=== PATIENT | male | born 1960 | race Caucasian/White ===

== ENCOUNTER 2017-03-15 05:27 | Inpatient (IN) | payer MEDICARE, BC ==
[~2017-03-15] VITALS: Ht 172.7 cm; Wt 148.4 kg
--- NOTE | ~2017-03-15 | CR236 ---
[facility] A Service of [facility] & [facility] RADIOLOGY TEXT RESULTS PATIENT: YUE VARNER LOCATION: [facility] 302- : [birth year] UNIT #: [id number] AGE: [address]: WHITNEY LINDSAY V SEX: M ORDER DR: [id number] [facility] [address] [place], [place] [address] [id number] I MR#: [id number] Acc #: [id number] NAME: YUE VARNER : 1960 SEX: M STUDY DATE/TIME: 03/16/2017 10:56 UNIT: A U ROOM: [facility] STUDY DESCRIPTION: CR Small Bowel Sbft W Films Attending Physician: Whitney Lindsay M.D. Ordering Physician: Juan Alberto Joe M.D. MEDICAL IMAGING REPORT This report is preliminary unless electronic signature is present EXAM Small bowel follow-through HISTORY Small bowel obstruction. FINDINGS Water-soluble contrast was utilized. Within about 2 hours, contrast was visualized within the colon. No dilated loops of small bowel are seen. Bowel opacification is marginal given water-soluble contrast material. The terminal ileum could not be assessed. Total of 0.95 minutes of fluoroscopy. 6 overhead images and 2 fluoroscopic spot images. IMPRESSION Normal small bowel follow-through. No evidence of bowel obstruction. Limited due to water-soluble contrast utilization. Dictated by... Elder Bergman M.D. THIS IS AN ELECTRONICALLY VERIFIED REPORT Elder Bergman M.D. at 03/17/2017 2:54 PM TEV/pcl TD: 03/16/2017 23:20 JOB #: [id number] MEDICAL IMAGING REPORT Page 1 of 1 COPY
--- NOTE | ~2017-03-15 | DS ---
Unit #: [id number] #: [id number] Patient: YUE VARNER [id number] [address] [place], [place] [address] [id number] I MR#: [id number] NAME: YUE VARNER ROOM: 302 Age: 56 Sex: M Admission Date: 03/15/2017 : 1960 Discharge Date: 03/17/2017 Attending Physician: Matt Dominguez M.D. Primary Care Physician: Andie Primary Care Physician DISCHARGE SUMMARY PERTINENT HISTORY/HOSPITAL COURSE The patient is a 56-year-old man with a history significant for hypertension, diabetes mellitus, hyperlipidemia, hypothyroidism, recent cardiac ablation on February 25 with maze procedure for atrial fibrillation, continued on amiodarone and on Coumadin for anticoagulation, who presented to the hospital with symptoms of abdominal pain. CAT scan of the abdomen demonstrated findings consistent with small bowel obstruction with transition zone in the right lower quadrant. CAT scan also demonstrated bilateral adrenal nodules, left greater than right. These nodules are larger than seen on 01/15/2006. The patient is to followup as an outpatient for these nodules either with the [facility] or urology, Dr. Hinds. During his admission, the patient's small bowel obstruction was managed by placing the patient NPO, and then NG-tube was placed. This NG-tube was maintained on low intermittent suction. After 24 hours, the patient started having bowel movements. Subsequent small bowel follow through was ordered which demonstrated normal small bowel follow through and no evidence of bowel obstruction. The patient will be discharged today. At discharge, the patient is tolerating oral feeds without vomiting. The patient is comfortable. His vitals are stable. DISCHARGE DIAGNOSES 1. Small bowel obstruction with resolution. 2. Atrial fibrillation, status post maze procedure. 3. Hypertension. 4. Diabetes mellitus. 5. Hypothyroidism. DISCHARGE MEDICATIONS 1. Amiodarone 400 mg twice daily for two days, then 200 mg twice daily for one week, then 200 mg once daily. 2. Coumadin 7.5 mg p.o. on Mondays and Fridays. 3. Coumadin 3.75 mg p.o. on Sundays, Tuesdays, Wednesdays, and Saturdays. 4. His metformin is to be held for ten days due to receiving contrast. 5. Coreg 12.5 mg p.o. twice daily. 6. Furosemide 80 mg p.o. once daily. 7. Lipitor 40 mg p.o. once daily. 8. Doxazosin 8 mg p.o. at bedtime. 9. Cozaar 50 mg p.o. once daily. 10. NovoLog FlexPen 20 units subcu a.c. meals. 11. Lantus 34 units subcu at bedtime. 12. Fish oil, one cap p.o. twice daily. 13. Multivitamin, one tab p.o. b.i.d. B complex. 14. Aspirin 81 mg p.o. daily. Unit #: [id number] #: [id number] Patient: YUE VARNER 15. Tramadol 50 mg p.o. daily as needed for pain. 16. Protonix 40 mg p.o. daily. DISCHARGE INSTRUCTIONS Follow up with Dr. Hinds as an outpatient for adrenal masses or follow up with the [facility] as an outpatient for adrenal masses. Follow up with cardiology as an outpatient. Follow up with primary care as an outpatient. Dictated by... Jordan Hurd/janette TD: 03/19/2017 09:11 JOB #: [id number] DISCHARGE SUMMARY Page 1 of 1 X X DISCHARGE SUMMARY
--- NOTE | ~2017-03-15 | CR2 ---
[facility] A Service of [facility] RADIOLOGY TEXT RESULTS PATIENT: YUE VARNER LOCATION: [facility] : 62 UNIT #: [id number] AGE: [address]: WHITNEY LINDSAY V SEX: M ORDER DR: [id number] [facility] [address] [place], [place] [address] [id number] I MR#: [id number] Acc #: [id number] NAME: YUE VARNER : 1960 SEX: M STUDY DATE/TIME: 03/16/2017 6:03 UNIT: C3A PCU ROOM: [facility] STUDY DESCRIPTION: CR Abdomen Acute Series Attending Physician: Whitney Lindsay M.D. Ordering Physician: Brody Barney M.D. Primary Care Physician: No Primary Care Physician MEDICAL IMAGING REPORT This report is preliminary unless electronic signature is present EXAM Acute abdomen series, 03/16/2017. HISTORY Small bowel obstruction symptoms with cramping and shortness of air for one day. COMPARISON CT abdomen and pelvis from yesterday. FINDINGS A PA view of the chest and a flat and upright view of the abdomen were obtained. The heart size is mildly enlarged. The vascularity is normal. There is a nasogastric tube present with its tip in the stomach. The bowel gas pattern is normal. The bones are unremarkable. IMPRESSION Although yesterday's CT scan showed marked distension of some of the small bowel, today's plain film series does not show any small bowel distension, probably because the bowel is filled with fluid. There is no free air. The heart is mildly enlarged. Dictated by... Edgar Mooney M.D. THIS IS AN ELECTRONICALLY VERIFIED REPORT Edgar Mooney M.D. at 03/16/2017 3:25 PM FEL/tmw [facility] A Service of [facility] RADIOLOGY TEXT RESULTS PATIENT: YUE VARNER LOCATION: [facility] : 62 UNIT #: [id number] AGE: [address]: WHITNEY LINDSAY V SEX: M ORDER DR: TD: 03/16/2017 13:36 JOB #: [id number] MEDICAL IMAGING REPORT Page 1 of 1 COPY
--- NOTE | ~2017-03-15 | BMI ---
[facility] Nutrition Therapy DATE: 03/16/17 Patient: YUE VARNER Physician: HAMIDA Address: [address] [place] [address] Room/Bed: [address] [place] [address], Zip: [place] [address] Admit Date: 03/15/17 Date of : 62 Height: 5 8 Weight: 322 146.4 HIGH BMI NOTE: DX: 56 y/o male admitted with abdominal pain, no BM, found to have SBO on CT scan ANTHROPOMETRICS: Ht: 68", Wt: 146.4 kg, BMI: 49 (stage III obese) DIET: NPO except ice chips INTERVENTION: Restricted diet, meds/fluids per MD RECOMMENDATIONS: Once medically feasible advance oral diet as tolerated to consistent carb/healthy heart due to PMH, to promote a gradual weight loss towards a healthy BMI range. If unable to advance to oral diet within [address] for nutrition support recommendations. Respectfully, Zuly Rojo, STACY, LD [employer] [facility] [employer] cc: client file
--- NOTE | ~2017-03-15 | EKG ---
PATIENT: YUE VARNER UNIT #: [id number] Ventricular Rate: 86 BPM Atrial Rate: 86 BPM P-R Interval: 200 ms QRS Duration: 140 ms Q-T Interval: 430 ms QTC Calculation(Bezet): 514 ms P Oliver: 28 degrees Calculated R Oliver: 4 degrees Calculated T Oliver: 34 degrees Diagnosis Line: Normal sinus rhythm Diagnosis Line: Right bundle branch block Diagnosis Line: Abnormal ECG Diagnosis Line: No previous ECGs available Diagnosis Line: Confirmed by GREGORY MCGEE MD ([id number]) on 03/16/2017 Diagnosis Line: 11:43:21 PM INTERPRETING MD: ARELY CONNELL
--- NOTE | ~2017-03-15 | CO ---
Unit #: [id number] #: [id number] Patient: YUE VARNER [id number] [address] [address] [id number] I MR#: [id number] NAME: YUE VARNER ROOM: 302 Age: 56 Sex: M Admission Date: 03/15/2017 : 1960 Attending Physician: Matt Dominguez M.D. Primary Care Physician: Primary Care Physician No CONSULTATION REPORT HISTORY OF PRESENT ILLNESS Mr. Varner is a 56-year-old white male, with history of hypertension, diabetes, hyperlipidemia, hypothyroidism, obstructive sleep apnea, cardiac ablation, and maze procedure for atrial fibrillation, presented with abdominal pain. He felt to have partial small bowel obstruction. He was admitted and placed on NG tube. We were consulted, because of his history of AURA. He has a history of AURA, maintained on CPAP. He is followed through the [facility]. He believes he is on a CPAP of 12. He has had no recent fever, chills, cough, or purulent sputum. PAST MEDICAL HISTORY Hypertension, diabetes, hyperlipidemia, hypothyroidism, atrial fibrillation status post cardiac ablation and maze procedure. PAST SURGICAL HISTORY Cardiac ablation, maze procedure, bilateral carpal tunnel release, left knee replacement, history of intestinal obstruction and perforation as a child. HOME MEDICATIONS Coreg, Lasix, Cozaar, aspirin, metformin, Glucotrol, NovoLog, Lantus, ferrous sulfate, Lipitor, Norvasc, amiodarone, Coumadin, Synthroid, Cardura, tramadol, Protonix, vitamin C, fish oil, Nizoral 2% cream. FAMILY HISTORY Negative for lung disease. SOCIAL HISTORY No tobacco, alcohol, or illicit drugs. REVIEW OF SYSTEMS Positive for abdominal pain. Denies shortness of breath or purulent sputum. All 10-point systems otherwise negative. PHYSICAL EXAMINATION GENERAL: White male. VITAL SIGNS: Blood pressure is 126/62, pulse 79, respiratory rate 18, and temperature 99.5. HEENT: Normocephalic and atraumatic. Pupils are equal, round, and reactive. Sclerae nonicteric. Nasal passages patent. NG tube in nose. Mallampati IV. Mucous membranes dry. NECK: Supple. Trachea midline. No cervical or supraclavicular lymphadenopathy. No bruits. LUNGS: Fairly clear bilaterally. Unit #: [id number] #: [id number] Patient: YUE VARNER CARDIAC: Irregular rate and rhythm. ABDOMEN: Moderately tender. Positive bowel sounds. No hepatosplenomegaly. No definite guarding. EXTREMITIES: Without clubbing, cyanosis, or edema. NEUROLOGIC: Awake, alert, and oriented x3. Motor function symmetric. Cranial nerves grossly intact. SKIN: Warm and dry. Psychiatric: Affect calm. DIAGNOSTIC STUDIES LABORATORY RESULTS: Reviewed. IMAGING STUDIES: No chest x-ray has been done. IMPRESSION 1. Small bowel obstruction/partial. 2. Atrial fibrillation, status post ablation and maze procedure. 3. Obstructive sleep apnea, maintained on CPAP. 4. Diabetes. 5. Hypertension. 6. Hyperlipidemia. 7. Morbid obesity. PLAN The patient is unable to wear CPAP due to NG tube and current medical problems. Would recommend elevation head of bed, supplemental oxygen, continuous pulse ox. He is to wear CPAP when NG tube was out. Should avoid sedatives and narcotics without CPAP. We will check chest x-ray in a.m. Make further recommendations pending this. But also place on DVT prophylaxis. Dictated by... Phani Hurt M.D. JOSE/paulette TD: 03/18/2017 09:25 JOB #: [id number] CONSULTATION REPORT Page 1 of 1 X Phani Hurt MD X CONSULTATION REPORT
--- NOTE | ~2017-03-15 | CT2 ---
[facility] A Service of [facility] RADIOLOGY TEXT RESULTS PATIENT: YUE VARNER LOCATION: C3A 302-01 : 62 UNIT #: [id number] AGE: [address]: ELIZABETH LINDSAYUJ V SEX: M ORDER DR: [id number] [facility] [address] [place], [place] [address] [id number] MR#: [id number] Acc #: [id number] NAME: YUE VARNER : 1960 SEX: M STUDY DATE/TIME: 03/15/2017 8:33 UNIT: QUINN ROOM: STUDY DESCRIPTION: CT Abd and Pelv W Cont Attending Physician: Carlos Garcia M.D. Ordering Physician: Carlos Garcia M.D. Primary Care Physician: Primary Care Physician No MEDICAL IMAGING REPORT This report is preliminary unless electronic signature is present EXAM CT abdomen and pelvis with contrast 03/15/2017 HISTORY Lower abdominal pain with bloating and gas sensation. Patient states right lower quadrant pain since 03/14/2017. Patient states status post cardiac ablation procedure approximately 2 weeks ago. COMPARISON No prior dedicated abdominal imaging at this institution for comparison. PROCEDURE 5 mm axial images from the lung bases through the lesser trochanters after intravenous contrast administration. Enteric contrast was not administered. Sagittal and coronal reformatted images were obtained. This CT examination was performed with one or more of the following radiation dose reduction techniques: automatic exposure control, adjustment of mA and/or kV according to patient size, and iterative reconstruction. FINDINGS ABDOMEN: Limited evaluation of bowel due to lack of enteric contrast. There are multiple abnormally dilated small bowel loops with air-fluid levels. Transition zone is thought to be within the right [id number] abdomen (series 3 image 77). Distal to this, the small bowel loops are decompressed. Findings are worrisome for small bowel obstruction. The colon does not appear thickened or inflamed, there is mild colonic stool burden. There is partial fecalization of the right lower quadrant small bowel upstream to the aforementioned transition zone. No free air, pneumatosis is identified. [facility] A Service of [facility] RADIOLOGY TEXT RESULTS PATIENT: YUE VARNER LOCATION: C3[facility] 302-01 : 62 UNIT #: [id number] AGE: [address]: WHITNEY LINDSAY V SEX: M ORDER DR: There is mild to moderate cardiac enlargement. Ill-defined fat stranding is demonstrated within the midline lower abdominal wall and within the extraperitoneal fat planes of the upper abdomen near the level of the xiphoid process, thought to be likely related to the patient's reported history of recent surgical ablation procedure. There is mild dependent atelectasis in the lung bases. Liver, gallbladder, spleen, pancreas are normal. Left kidney is normal. 3 cm cyst is demonstrated medially within the right lower renal pole (Hounsfield units 7.9). Bilateral adrenal nodules are present, right greater than left. Left adrenal nodule measures 2.5 x 3.5 cm (Hounsfield units 33.8), slightly larger than on 01/15/2006 where it measured 2.7 x 2.5 cm. The right adrenal nodule measures 1.7 x 1.6 cm (Hounsfield units 48.7), compared to previous study where it measured 1.0 x 1.3 cm. The appendix is visualized and appears normal. There is a tiny umbilical hernia containing only fat. PELVIS: Urinary bladder, prostate and rectum are normal. There are small bilateral inguinal hernias containing only fat, right greater than left. No pelvic free fluid is identified. Facet arthropathy is present at L4-5. No acute osseous abnormalities are identified. IMPRESSION 1. Findings consistent with small bowel obstruction with transition zone in the right lower quadrant of the abdomen. 2. Bilateral adrenal nodules, left greater than right. These nodules are larger than on the 01/15/2006 examination. Their postcontrast density is greater than can be confirmed for adenomas. MRI abdomen without and with contrast adrenal mass protocol recommended for further evaluation. That examination can be performed on a nonemergent basis. 3. 3 cm right renal cyst. 4. Fat stranding is seen within the chest wall and within the extraperitoneal fat plane in the midline upper abdomen near the xiphoid process, thought to be related to the patient's stated history of recent cardiac ablation procedure. No well-defined drainable fluid collection or abscess is seen. 5. Mild dependent bibasilar atelectasis. 6. Small bilateral inguinal hernias containing only fat. Dictated by... Maren Royal M.D. THIS IS AN ELECTRONICALLY VERIFIED REPORT Maren Royal M.D. at 03/16/2017 8:31 AM [facility] A Service of [facility] RADIOLOGY TEXT RESULTS PATIENT: YUE VARNER LOCATION: [facility] 302-01 : [birth year] UNIT #: [id number] AGE: [address]: WHITNEY LINDSAY V SEX: M ORDER DR: LUCIANO/baljinder TD: 03/15/2017 10:11 JOB #: [id number] MEDICAL IMAGING REPORT Page 1 of 1 COPY
--- NOTE | ~2017-03-15 | CO ---
Unit #: [id number] #: [id number] Patient: YUE VARNER [id number] [address] [address] [id number] I MR#: [id number] NAME: YUE VARNER ROOM: 302 Age: 56 Sex: M Admission Date: 03/15/2017 : 1960 Attending Physician: Susan Smith M.D. Primary Care Physician: No Primary Care Physician Consultation Date: 03/15/2017 CONSULTATION REPORT REASON FOR CONSULTATION Bilateral adrenal masses. HISTORY OF PRESENT ILLNESS Patient is a 56-year-old male who presented with a partial small bowel obstruction. He underwent a CT abdomen and pelvis and he was found to have bilateral adrenal masses. I have reviewed this personally and compared to his CT scan in 2005. His left adrenal mass is 2.5 x 3.5 cm whereas in 2006 it was 2.7 x 2.5 cm. His right adrenal mass is 1.7 x 1.6 cm compared to 1.0 x 1.3 cm in 2006. These nodules have a density greater than can be confirmed for adenomas and an MRI was recommended. The patient states that he has not had a bowel movement for approximately 36 hours and he is having crampy abdominal pain. PAST MEDICAL HISTORY 1. Hypertension 2. Diabetes. 3. Congestive heart failure. 4. Coronary artery disease. PAST SURGICAL HISTORY 1. GI surgery for obstruction and perforation as a child. 2. Maze procedure. 3. Bilateral carpal tunnel release. 4. Left knee replacement. MEDICATIONS AND ALLERGIES Documented in the chart. SOCIAL HISTORY Negative for alcohol. Negative for tobacco. FAMILY HISTORY Noncontributory. REVIEW OF SYSTEMS Review of systems is positive for nausea, vomiting, crampy abdominal pain. PHYSICAL EXAMINATION GENERAL APPEARANCE: Physical examination reveals an obese white male in no acute distress. VITAL SIGNS: Temperature 97.5, blood pressure 119/98, pulse 86, respirations 16, sating 92% on room air. Unit #: [id number] #: [id number] Patient: YUE VARNER HEENT: Normocephalic and atraumatic. He has a nasogastric tube in place draining bilious drainage. NECK: Supple. No lymphadenopathy. LUNGS: Respirations are unlabored, with symmetric chest rise. ABDOMEN: Abdomen is distended but soft. There is no rebound and no guarding. EXTREMITIES: No cyanosis, clubbing or edema. Moving all extremities well. DIAGNOSTIC STUDIES LABORATORY: Labs are significant for a creatinine of 0.9, potassium of 4.1, sodium 137, white blood cell count 8.3, hemoglobin 12.5. ASSESSMENT AND PLAN Bilateral adrenal masses: These have been slow growing but they have enlarged over time. He needs further workup with an MRI. The patient states that he does need an open MRI or sedation and given his current medical situation I do not think that is indicated at this time. We will plan an open MRI later as an outpatient. Dictated by... Jordan Jones/migdalia TD: 03/15/2017 21:09 JOB #: [id number] CONSULTATION REPORT Page 1 of 1 X Scott Hinds MD X CONSULTATION REPORT
--- NOTE | ~2017-03-15 | CO ---
Unit #: [id number] #: [id number] Patient: YUE VARNER [id number] [address] [address] [id number] I MR#: [id number] NAME: YUE VARNER ROOM: 216 Age: 56 Sex: M Admission Date: 03/15/2017 : 1960 Attending Physician: Susan Smith M.D. Primary Care Physician: No Primary Care Physician Consultation Date: 03/15/2017 CONSULTATION REPORT REASON FOR CONSULTATION Small bowel obstruction. HISTORY OF PRESENT ILLNESS Thank you very much for asking us to see Mr. Varner. He is a 56-year-old white male whose past medical history is remarkable for an intestinal procedure as an infant for obstruction and perforation, per his history. His last colonoscopy was 2 years ago, and he states it was normal. He also had a recent maze procedure for atrial fibrillation. His javascript front end developer is Dr. Michael Murray. He normally has 2 or 3 bowel movements a day. He has not had a bowel movement for 24-36 hours. He developed crampy abdominal pain yesterday, as well as dry heaves. He denies any GI bleeding. No or change in his pulmonary symptoms. He came to the emergency room for evaluation. He was found on CT scan to have changes consistent with a distal small bowel obstruction. He was also found to have a small umbilical hernia, bilateral fat containing small inguinal hernias, bilateral enlarging adrenal masses. The appendix was normal, and the colon did not appear inflamed. He presents at this time for further evaluation and treatment. ALLERGIES No known medical allergies. MEDICATIONS Please see med/rec sheet. PAST SURGICAL HISTORY Maze procedure, bilateral carpal tunnel release, left knee replacement, intestinal procedure as a child for obstruction and perforation. PAST MEDICAL HISTORY Coronary artery disease, congestive heart failure, hypertension, diabetes. SOCIAL HISTORY No alcohol use. No tobacco use. IMMUNIZATIONS Immunization status is unknown. FAMILY HISTORY Noncontributory. REVIEW OF SYSTEMS Negative, except for above. Unit #: [id number] #: [id number] Patient: YUE VARNER PHYSICAL EXAMINATION GENERAL: Well-developed, well-nourished white male with a nasogastric tube in place. No apparent distress. VITAL SIGNS: Afebrile. Vital signs stable. NECK: Supple. No thyromegaly or adenopathy. BACK: No CVA or spinous tenderness. ABDOMEN: Very distended but soft. Mild diffuse tenderness. No rebound, peritoneal signs or masses. Small reducible umbilical hernia. No palpable incarcerated inguinal hernia bilaterally. EXTREMITIES: No calf tenderness. DIAGNOSTIC STUDIES LABS: Laboratory studies reveal the patient to have glucose of 270, BUN 13, creatinine 0.9. Normal liver function studies, amylase and lipase. PT is 31.7 with INR of 2.9. White count is 8.3 with hemoglobin of 12.5, MCV of 87.2, platelet count 184,000. Urinalysis was trace leukocyte esterase, negative nitrites with 5-10 red cells, 25-50 white cells. IMPRESSION A 56-year-old white male with small bowel obstruction and atrial fibrillation, as well as the above noted CT scan changes. We have recommended IV fluids and NG tube decompression. We have had a long conversation with the patient, as well as his , regarding what a small bowel obstruction is and that there is a possibility he may need operative intervention. We have discussed the case with Dr. Shipman of cardiology. She will see him both in terms of his atrial fibrillation, as well as managing his anticoagulation, so they can be controlled perioperatively if needed. We will have Dr. Rory Hurt of pulmonary medicine see the patient since he has a CPAP machine at home and has sleep apnea. Dr. Ceja of urology will see the patient for his enlarging adrenal masses. Dictated by... Jordan Ng/chas TD: 03/15/2017 14:31 JOB #: [id number] CC: Jordan Guthrie M.D. CONSULTATION REPORT Page 1 of 1 X Brody Barney MD X CONSULTATION REPORT
--- NOTE | ~2017-03-15 | CO ---
Unit #: [id number] #: [id number] Patient: YUE VARNER [id number] [facility]. [place] [id number] [facility]. [place], [place] [address] [id number] MR#: [id number] NAME: YUE VARNER ROOM: 302 Age: 56 Sex: M Admission Date: 03/15/2017 : 1960 Attending Physician: Matt Dominguez M.D. Primary Care Physician: Andie Primary Care Physician Consultation Date: 03/15/2017 CONSULTATION REPORT CORRECTED/REVISED REPORT REASON FOR CONSULTATION Cardiac management. HISTORY OF PRESENT ILLNESS This is a 56-year-old white male with a history of diabetes mellitus, hypertension, hyperlipidemia, had a recent cardiac ablation at [facility] by Dr. Murray on February 25 also and a Maze procedure. The patient reports he still remains in atrial fibrillation with the rates better controlled. At the end of the procedure, he is on carvedilol and amiodarone. He also is anticoagulated with Coumadin and his INR today is 2.9. The patient started developing some lower quadrant pain yesterday morning. He said he also couldn't have a bowel movement. He no longer has a daily bowel movement. He says that he continued throughout the evening. At night, he says the pain was worsening in addition to nausea, vomiting and some dry heaving. He denies any diarrhea. He is not passing any flatus. He denies any hematemesis and prior to this abdominal pain he did not have any dark stool. He denies any dizziness, presyncope or syncope. He denies any chest pain, pain in his neck, bilateral jaw, shoulders, arms or elbow. He denies any paroxysmal nocturnal dyspnea or orthopnea. No cough, fever or chills. He also has obstructive sleep apnea and uses CPAP. In the emergency room, the patient's blood pressure was 153/76, heart rate 82, respirations 16, temperature 98.0, O2 sats 100% on 2 L. Initial labs - creatinine 0.9, potassium 4.1, WBC 8.3, hemoglobin 12.5. Platelets are normal. Patient has CT of abdomen and pelvis which showed a small bowel obstruction in the right lower quadrant with bilateral adrenal nodules, left greater than right, and appeared larger than an x-ray done in 2005. It also shows some dependent atelectasis in the lung bases. The patient received some Phenergan and morphine and also some IV Protonix. He has been started on IV fluids. [facility] has seen the patient and he had NG-tube to low wall suction with a copious amount of dark brownish looking secretions. The plan is to hydrate through the NG-tube and check him and see if there are any improvements tomorrow before any surgical intervention. However, Dr. Barney would like cardiology to be on the patient's case due to his recent ablation and he is on anticoagulation and management of his cardiac medications. PAST MEDICAL HISTORY 1. Recent cardiac ablation February 25 through the 2016 at [place] Unit #: [id number] #: [id number] Patient: [facility] with Dr. Murray and Guzman - Maze procedure (partial). 2. Cardiac cath in 2015, according to patient told it was normal. 3. Diabetes mellitus type 2. 4. Hyperlipidemia. 5. Hypertension. 6. Histoplasmosis and COPD. 7. Obstructive sleep apnea, uses a CPAP. 8. Reformed smoker. 9. Chronic back pain. 10. Hypothyroidism. 11. Reformed smoker. 12. He has chronic lower extremity edema and neuropathy. He wears compression stockings. 13. Morbid obesity, weight 324 pounds. PAST SURGICAL HISTORY 1. Carpal tunnel. 2. Left knee replacement. 3. Recent cardiac ablation on February 25 through the 2016 at [place]. HOME MEDICATIONS 1. Carvedilol 50 mg p.o. twice daily. 2. Lasix 80 mg p.o. daily. 3. Lasix 40 mg p.o. evening. 4. Cozaar 100 mg p.o. daily. 5. Aspirin 81 mg daily. 6. Lipitor 40 mg p.o. daily. 7. Amlodipine 5 mg p.o. daily. 8. Amiodarone 200 mg p.o. daily. 9. Coumadin 7.5 mg Wednesday and Wednesday and 3.7 mg p.o. on Wednesday, Wednesday, Wednesday, and Wednesday. 10. Metformin 850 mg p.o. three times daily. 11. Glucotrol 20 mg p.o. twice daily. 12. NovoLog 18 units subcu before each meal. 13. Lantus 34 units subcu at bedtime. 14. Ferrous sulfate 325 mg p.o. daily. 15. Synthroid 0.05 mg p.o. daily. 16. Cardura 8 mg p.o. at bedtime. 17. Tramadol 50 mg p.o. daily p.r.n. 18. Protonix 40 mg p.o. daily. 19. Vitamin C 500 mg p.o. daily. 20. Fish oil 1200 mg, one capsule p.o. daily. 21. Multivitamin, one tablet twice daily. 22. Nizoral cream, one application topically twice daily. ALLERGIES No known drug allergies. SOCIAL HISTORY The patient lives in his own home. He quit smoking 20 years ago. He ambulates without a cane or walker but is fairly sedentary due to his chronic back problems. No alcohol or illicit drug abuse. FAMILY HISTORY His mother is still living and is doing well. His father of cancer and he is not sure of the history of his siblings. Unit #: [id number] #: [id number] Patient: YUE VARNER REVIEW OF SYSTEMS See details in HPI. PHYSICAL EXAMINATION GENERAL: On exam, Mr. Varner is a 56-year-old white male in no acute respiratory distress. He has an NG-tube with copious amounts of brownish secretions. VITAL SIGNS: Blood pressure is 119/96, respirations 16, heart rate 100, temperature 97.5. O2 sats 92% on 2 L. NECK: Trachea midline. No thyromegaly or lymphadenopathy. Normal carotid upstrokes. No jugular venous distention. HEART: S1, S2. Distant heart sounds noted. LUNGS: Very diminished. A few faint crackles in the bases. ABDOMEN: Firm. EXTREMITIES: Pedal pulses are palpable. Trace of pedal edema. DIAGNOSTIC STUDIES LABORATORY: Glucose is 270, BUN 13, creatinine 0.9, eGFR is 95.8, sodium 137, potassium 4.1, chloride 95, CO2 33, calcium 8.7, total protein 7.3, albumin 3.8, bili total 0.9, AST 26, ALT 36, alkaline phos. 80, amylase is 18 with a lipase of 17. Protime is 31.7 with an INR of 2.9. WBC 8.3, hemoglobin 12.5, hematocrit 37.9, platelets 184. Urinalysis shows trace of leukocyte esterase, 2+ protein, greater than 1000 glucose, 1.0 urobilinogen, 5-10 RBCs and 25-50 WBCs. Urine culture is pending. IMAGING: CT abdomen and pelvis with contrast shows small bowel obstruction in the right lower quadrant area with bilateral adrenal nodules, left greater than right. They look larger than on 01/15/2006. Also found a 3 mm right renal cyst. CARDIOVASCULAR: EKG just obtained shows normal sinus rhythm with right bundle branch block, ventricular rate 86 beats per minute. Some nonspecific ST-T wave abnormalities in septal anterior leads. IMPRESSION 1. Abdominal pain with nausea and vomiting. 2. Follow up with small bowel obstruction. 3. Recent cardiac ablation - partial Maze procedure. 4. History of paroxysmal atrial fibrillation, now in sinus rhythm. 5. Hypertension. 6. Hyperlipidemia. 7. Diabetes mellitus type 2. 8. Hypothyroidism. 9. Cardiac cath in 2016. According to patient, told it was normal. 10. Diabetes mellitus type 2. 11. Hypertension. 12. Hyperlipidemia. 13. Hypothyroidism. 14. Morbid obesity. 15. Bilateral adrenal nodules, left greater than right. 16. Back pain. 17. Histoplasmosis. 18. Obstructive sleep apnea. 19. Peripheral neuropathy. 20. Reformed smoker. Unit #: [id number] #: [id number] Patient: YUE VARNER PLAN 1. Cardiology consulted to assist with evaluation and management. At this time, Dr. Barney is hydrating the patient and also has an NG-tube. Patient is having copious amounts of brownish secretions. Also, patient is on pain management. On exam, there are no signs or symptoms of unstable angina or acute congestive heart failure. The patient is NPO and all of his cardiac meds, including his Coumadin, is on hold. If Dr. Barney wants to do a surgical procedure, may have to reverse the anticoagulation. Will probably most likely have to give an IV beta mercedes and IV hydralazine during this time when the patient is NPO. 2. The patient is staying mostly in atrial fibrillation but his EKG today shows sinus rhythm. He does have a right bundle branch block. 3. Will obtain records from [facility] with the recent cardiac ablation, Maze procedure, and cardiology note to see any 2D echo. If he has not had a 2D echo recently, will have to obtain one. 4. On exam, there are no signs or symptoms of acute congestive heart failure or unstable angina. 5. The patient most likely will be permitted to have the surgery at a low to moderate modifiable risk by cardiology. 6. Also reported, per the patient, when he had the recent ablation and Maze procedure at [place], he says it was a partial Maze procedure. He will have to have the rest of it done at a later date. Dictated by... Babatunde MaynardRBarron for Jordan Lee/janette TD: 03/16/2017 07:39 JOB #: [id number] [facility] CONSULTATION REPORT Page 1 of 1 X Jocelyn Joseph APRN X CONSULTATION REPORT
--- NOTE | ~2017-03-15 | CR72 ---
[facility] A Service of [facility] RADIOLOGY TEXT RESULTS PATIENT: YUE VARNER LOCATION: A 302-01 : [birth year] UNIT #: [id number] AGE: [address]: WHITNEY LINDSAY V SEX: M ORDER DR: [id number] [facility] [address] [place], [place] [address] [id number] I MR#: [id number] Acc #: [id number] NAME: YUE VARNER : 1960 SEX: M STUDY DATE/TIME: 03/17/2017 6:13 UNIT: A U ROOM: [facility] STUDY DESCRIPTION: CR Chest Single View Portable Attending Physician: Whitney Lindsay M.D. Ordering Physician: Phani Hurt M.D. Primary Care Physician: No Primary Care Physician MEDICAL IMAGING REPORT This report is preliminary unless electronic signature is present EXAM Portable chest, 03/17. INDICATIONS Shortness of air, atrial fibrillation for 2 days. FINDINGS AP portable chest is compared with 03/16/2017. Cardiomegaly and mediastinal widening are unchanged. There is some vascular congestion. There is elevation of the right hemidiaphragm which is stable. Lungs otherwise appear clear and there is no pneumothorax. Dictated by... Michael Multani Jr., M.D. THIS IS AN ELECTRONICALLY VERIFIED REPORT Michael Multani Jr., M.D. at 03/17/2017 4:44 PM ESTRELLA/nora TD: 03/17/2017 11:28 JOB #: [id number] MEDICAL IMAGING REPORT Page 1 of 1 COPY
--- NOTE | ~2017-03-15 | HP ---
Unit #: [id number] #: [id number] Patient: YUE VARNER [id number] [address] [address] [id number] I MR#: [id number] NAME: YUE VARNER ROOM: 310 Age: 56 Sex: M Admission Date: 03/15/2017 : 1960 Attending Physician: Virginia Smith M.D. HISTORY AND PHYSICAL CHIEF COMPLAINT Abdominal pain. HISTORY OF PRESENT ILLNESS The patient is a 56-year-old male with a history of hypertension, diabetes, hyperlipidemia, hypothyroidism, recent cardiac ablation on February 25 and maze procedure at [facility] for atrial fibrillation who presented to the emergency room complaining of abdominal pain. The pain started at 3:30 p.m. yesterday while visiting patient's relatives. The patient stated that patient had a bowel movement at 8:30 yesterday morning. The patient was found to have a distal small bowel obstruction, and the patient is being admitted for the above reasons. The patient also complains of feeling of nausea. He denies any chest pain and denies any fever. The patient had abdominal surgery when he was around [age] years old for an obstruction and perforation. The patient has been placed on NG tube and is suctioning bilious secretions and is up to 150-200 mL/hour. The patient has been evaluated by Surgery for probable surgical intervention if medical intervention has failed. PAST MEDICAL HISTORY 1. Hypertension. 2. Diabetes. 3. Hyperlipidemia. 4. Hypothyroidism. 5. Atrial fibrillation, status post cardiac ablation. PAST SURGICAL HISTORY 1. Maze procedure. 2. Bilateral carpal tunnel. 3. Left knee replacement. 4. Intestinal obstruction/perforation as a child. HOME MEDICATIONS 1. Coreg. 2. Lasix. 3. Cozaar. 4. Aspirin. 5. Metformin. 6. Glucotrol. 7. NovoLog. 8. Lantus. 9. Ferrous sulfate. 10. Lipitor. 11. Amlodipine. Unit #: [id number] #: [id number] Patient: YUE VARNER 12. Amiodarone. 13. Coumadin. 14. Synthroid 15. Cardura. 16. Tramadol. 17. Protonix. 18. Vitamin C. 19. Fish oil. 20. Nizoral 2% cream. SOCIAL HISTORY No history of smoking cigarettes, drinking alcohol, or any illicit drug abuse. FAMILY HISTORY Reviewed and none. REVIEW OF SYSTEMS Positive for abdominal pain and positive for nausea and vomiting. Denies any chest pain, denies any palpitations, denies any shortness of breath, and denies any headache. Other systems were reviewed and are all negative except as described above. PHYSICAL EXAMINATION GENERAL: Patient is lying in bed not in acute distress. VITAL SIGNS: Temperature 98, pulse 83, respiratory rate 16, blood pressure 143/76, and saturating 100% on room air. HEENT: Head atraumatic, normocephalic. Pupils equal, round, and reactive to light and accommodation. Extraocular movements are intact. Dry mucous membranes. NECK: Supple. LUNGS: Coarse breath sounds. HEART: Irregular rate and rhythm. ABDOMEN: Soft. Positive bowel sounds. Distended and generalized abdominal discomfort. EXTREMITIES: No cyanosis, no clubbing. NEUROLOGIC: Alert, awake, and oriented. No gross focal motor deficit. DIAGNOSTIC STUDIES LABORATORY: WBC 8.3, hemoglobin 12.5, hematocrit 37.9, and platelets 184,000. Sodium 137, potassium 4.1, chloride 95, bicarb 33, glucose 230, BUN 13, creatinine 0.9, AST 26, ALT 36, alkaline phosphatase 80, and albumin 3.8. Lipase 17 and amylase 18. INR is 2.9. Urinalysis shows trace leukocyte esterase, more than 1000 glucose, and 25-50 urine WBCs. Glucose is 214. IMAGING: CT of the abdomen and pelvis with contrast shows findings consistent with a small bowel obstruction with transition zone in the right lower quadrant of the abdomen. Bilateral adrenal nodules, left greater than right. These nodules are larger than on January 15, 2006, examination. Fat stranding is seen within the chest wall and within the extraperitoneal fat plane in the midline upper abdomen near the xiphoid process thought to be related to the patient's stated history of recent cardiac ablation procedure. Mild dependent bibasilar atelectasis. Small bilateral inguinal hernias containing only fat. ASSESSMENT 1. Small bowel obstruction. Unit #: [id number] #: [id number] Patient: YUE VARNER 2. Atrial fibrillation. 3. Diabetes mellitus. PLAN Admit the patient to inpatient with telemetry. Patient will be seen by [facility]. Continue with medical management with NG tube decompression and repeat the abdominal series in the morning. Appreciate Cardiology consult for the atrial fibrillation. Patient has been started on a Cardizem drip. Follow with CBC and BMP and continue with low-dose sliding scale and Accu-Cheks a.c. and at bedtime. Further recommendations will follow. Dictated by Jordan Moran TD: 03/15/2017 18:14 JOB #: [id number] HISTORY AND PHYSICAL Page 1 of 1 X VIRGINIA SMITH MD X HISTORY AND PHYSICAL
[2017-03-15 06:52] LABS: BASOPHIL% 0.3 % (0-2.5); EOSINOPHIL# 0.1 X10e3 (0-0.7); HEMATOCRIT 37.9 % (38.0-50.0); HEMOGLOBIN 12.5 gm/dL (13.0-16.0); LYMPHOCYTE# 0.5 X10e3 (1.0-3.5); LYMPHOCYTE% 5.8 % (17.0-45.0); MEAN CELL VOLUME 87.2 FL (83-96); MEAN CORPUSCULAR HEMOGLOBIN 28.7 PG (28-34); MEAN CORPUSCULAR HGB CONC 32.9 g/dL (30-36); MEAN PLATELET VOLUME 7.1 FL (6.5-11.5); MONOCYTE# 0.2 X10e3 (0-1.0); NEUTROPHIL# 7.4 X10e3 (1.5-7.1); NEUTROPHIL% 89.9 % (40-75); PLATELET COUNT 184 X10e3 (140-420); RED BLOOD COUNT 4.35 X10e (3.90-5.60); RED CELL DISTRIBUTION WIDTH 16.5 % (11.0-15.5); WHITE BLOOD COUNT 8.3 X10e3 (4.0-10.5)
[2017-03-15 06:54] LABS: DIFF IND NO
[2017-03-15 07:37] LABS: ALBUMIN SERUM 3.8 g/dL (3.5-5.0); BILIRUBIN, DIRECT 0.2 mg/dL (0.0-0.2); BILIRUBIN,INDIRECT 0.7 mg/dL (0.0-0.9); BILIRUBIN,TOTAL 0.9 mg/dL (0.2-2.0); BUN/CREATININE RATIO 14.44; CALCIUM SERUM 8.7 mg/dL (8.4-10.2); CREATININE SERUM 0.9 mg/dL (0.6-1.4); GLOM FILT RATE Estimated 95.8 mL/min (>60); POTASSIUM 4.1 mmol/L (3.5-5.1); PROTEIN TOTAL SERUM 7.3 g/dL (6.0-8.3)
[2017-03-15 07:43] LABS: INR 2.9; PROTHROMBIN TIME (PATIENT) 31.7 SECONDS (10.0-11.7)
[2017-03-15 08:07] LABS: URINE SOURCE CLEAN CATCH
[2017-03-15 08:16] LABS: URINE APPEARANCE CLEAR; URINE BLOOD NEG (NEG); URINE COLOR DK YELLOW; URINE GLUCOSE >1000 MG/DL (NEG); URINE KETONE 1+ (NEG); URINE LEUKOCYTE ESTERASE TRACE (NEG); URINE NITRATE NEG (NEG); URINE PH 5.5 (5-8); URINE PROTEIN 2+ (NEG); URINE SPECIFIC GRAVITY 1.035 (1.003-1.035)
[2017-03-15 08:18] LABS: CULTURE INDICATED? YES; URINE BACTERIA AUWI NEG (NEGATIVE); URINE SQUAMOUS EPITHELIAL CELL OCC /[HPF]; UWBCS1 AUWI 25-50 (0-5)
[2017-03-15 08:21] LABS: URINE BILIRUBIN NEG (NEG)
[2017-03-15 08:41] LABS: URINE MUCUS PRESENT
[2017-03-15] MEDS ORDERED: LASIX80 MG PO (10:08)
[2017-03-15] MEDS ORDERED: COREG PO (10:08)
[2017-03-15] MEDS ORDERED: LASIX PO (10:09)
[2017-03-15] MEDS ORDERED: COZAAR100 MG PO (10:09)
[2017-03-15] MEDS ORDERED: BAYER CHEWABLE81 MG PO (10:09)
[2017-03-15] MEDS ORDERED: AMLODIPINE BESYL5 MG PO (10:10)
[2017-03-15] MEDS ORDERED: LIPITOR40 MG PO (10:10)
[2017-03-15] MEDS ORDERED: COUMADIN7.5 MG PO (10:11)
[2017-03-15] MEDS ORDERED: AMIODARONE PO (10:11)
[2017-03-15] MEDS ORDERED: WARFARIN SODIUM3 MG PO (10:12)
[2017-03-15] MEDS ORDERED: GLUCOTROL10 MG PO (10:13)
[2017-03-15] MEDS ORDERED: METFORMIN HCL850 MG PO (10:13)
[2017-03-15] MEDS ORDERED: NOVOLOG FL100 UNIT/1 SUBQ (10:14)
[2017-03-15] MEDS ORDERED: LANTUS100 U/ML SUBQ (10:14)
[2017-03-15] MEDS ORDERED: FERRO-TIME325 MG PO (10:15)
[2017-03-15] MEDS ORDERED: SYNTHROID0.05 MG PO (10:15)
[2017-03-15] MEDS ORDERED: TRAMADOL HCL50 M1 PO (10:16)
[2017-03-15] MEDS ORDERED: CARDURA8 MG PO (10:16)
[2017-03-15] MEDS ORDERED: PROTONIX PO (10:17)
[2017-03-15] MEDS ORDERED: FISH OIL 1,2001 CAP PO (10:18)
[2017-03-15] MEDS ORDERED: VITAMIN C500 M7 PO (10:18)
[2017-03-15] MEDS ORDERED: MULTI-BETIC TA1 EACH PO (10:18)
[2017-03-15] MEDS ORDERED: NIZORAL 2% CREA15 GM TOP (10:19)
[2017-03-16 05:15] LABS: HEMATOCRIT 37.7 % (38.0-50.0); HEMOGLOBIN 12.2 gm/dL (13.0-16.0); MEAN CORPUSCULAR HEMOGLOBIN 28.7 PG (28-34); MEAN CORPUSCULAR HGB CONC 32.3 g/dL (30-36); MEAN PLATELET VOLUME 7.7 FL (6.5-11.5); RED BLOOD COUNT 4.23 X10e (3.90-5.60); RED CELL DISTRIBUTION WIDTH 16.3 % (11.0-15.5); WHITE BLOOD COUNT 7.6 X10e3 (4.0-10.5)
[2017-03-16 05:25] LABS: INR 2.7; PROTHROMBIN TIME (PATIENT) 29.8 SECONDS (10.0-11.7)
[2017-03-16 07:40] LABS: BUN/CREATININE RATIO 15.71; CALCIUM SERUM 7.9 mg/dL (8.4-10.2); CREATININE SERUM 0.7 mg/dL (0.6-1.4); GLOM FILT RATE Estimated 106.3 mL/min (>60); POTASSIUM 3.9 mmol/L (3.5-5.1)
[2017-03-17 07:15] LABS: INR 2.1; PROTHROMBIN TIME (PATIENT) 22.4 SECONDS (10.0-11.7)
[2017-03-17] MEDS ORDERED: AMIODARONE HCL200 MG PO ×3 (12:24→12:26)
[2017-03-17] MEDS ORDERED: AMIODARONE HCL400 MG PO ×2 (12:25→12:40)
[2017-03-17] MEDS ORDERED: METFORMIN HCL850 MG PO (12:27)
[2017-03-17] MEDS ORDERED: COREG12.5 MG PO (12:29)
[2017-03-17] MEDS ORDERED: COZAAR PO (12:30)
[2017-03-17] MEDS ORDERED: NOVOLOG FL100 UNIT/1 SUBQ (12:31)
== END 2017-03-17 13:47 | disposition home or self-care (01) | DRG 389 ==
LOC: CED 05:27 → CEDOF 11:20 → C2A 11:51 → CED 11:51 → CEDOF 12:25 → C2A 12:25 → C3A PCU 15:43
PROVIDERS: Emergency Medicine; Internal Medicine Cardiovascular Disease; Nurse Practitioner
DX: K56.60 Unspecified intestinal obstruction (principal); I50.32 Chronic diastolic (congestive) heart failure; I11.0 Hypertensive heart disease with heart failure; E11.42 Type 2 diabetes mellitus with diabetic polyneuropathy; I48.91 Unspecified atrial fibrillation; E03.9 Hypothyroidism, unspecified; E78.5 Hyperlipidemia, unspecified; E27.9 Disorder of adrenal gland, unspecified; E66.01 Morbid (severe) obesity due to excess calories; G47.33 Obstructive sleep apnea (adult) (pediatric); Z87.891 Personal history of nicotine dependence; Z79.01 Long term (current) use of anticoagulants; Z96.652 Presence of left artificial knee joint
CPT/HCPCS: 36415; 71010; 74022; 74177; 74250; 80048; 80076; 81003; 82150; 82947; 83036; 83690; 85025; 85027; 85610; 87086; 93005; 94010; 94761; 94762; 96361; 96374; 99285; C9113; J0282; J1170; J1815; J2270; J2405; J2550; Q9967